=== PATIENT | female | born 2005 | race Caucasian/White ===

== ENCOUNTER 2023-07-29 23:35 | Emergency (ER) | payer OTHER, SELFPAY ==
--- NOTE | ~2023-07-29 | XR_ITS ---
EXAMINATION: XR LUMBAR SPINE CLINICAL INFORMATION: Pain COMPARISON: None available. TECHNIQUE: Three views of the lumbar spine. FINDINGS: There is anatomic alignment of the lumbar vertebral bodies and posterior elements. Vertebral body heights and intervertebral disc spaces appear maintained. No acute fracture is seen. Sacroiliac joints appear intact. Moderate stool in the colon. XR/XR lumbar spine 2-3V IMPRESSION: No acute findings identified in the lumbar spine.
--- NOTE | ~2023-07-29 | XR_ITS ---
EXAMINATION: XR THORACOLUMBAR SPINE CLINICAL INFORMATION: Pain COMPARISON: None available. TECHNIQUE: AP and lateral views. FINDINGS: Alignment throughout the thoracic spine appears anatomic. Vertebral body heights are maintained. No acute fracture is seen. Intervertebral disc spaces also appear preserved. XR/XR thoracic spine 2V IMPRESSION: No acute findings identified.
[2023-07-29 23:39] VITALS: BP 138/80; PULSE 85; RESP 17; TEMP 36.6; O2SAT 98; BMI 23.1
--- NOTE | 2023-07-30 01:28 | ED_ITS ---
HPI - Back Pain/Injury General Chief Complaint: Back Pain/Injury Stated Complaint: Back pain/No inj Time Seen by Provider: 07/30/23 01:12 Source: patient Mode of arrival: ambulatory Limitations: no limitations History of Present Illness HPI Narrative: 17 yo female otherwise healthy notes atraumatic mid back pain that started after sitting in class for 3 hours. It has worsened throughout the day. She notes no numbness, weakness, saddle anesthesia, loss of control of bowel or bladder. No IVDA, thinners. She denies back pain in past. Hurts to move. Feels tight. No fevers or tick bites MD elicited complaint: back pain Onset (ago): hour(s) (several) Timing: constant Severity: moderate Similar Symptoms Previously: No Quality: spasming and throbbing Location: thoracic spine Radiation: none Exacerbating factors: movement Relieving factors: immobilization Context: unknown Associated symptoms: denies other symptoms Treatments prior to arrival: NSAIDS Work related injury: No Related Data Previous Rx's ?Medication ?Instructions ?Recorded cyclobenzaprine 10 mg tablet 10 mg PO TID PRN muscle spasm #20 07/30/23 tabs lidocaine 5 % topical patch 1 patch topical DAILY #30 ea 07/30/23 Allergies Allergy/AdvReac Type Severity Reaction Status Date / Time No Known Allergies Allergy Verified 07/29/23 23:41 Review of Systems Review of Systems: Constitutional : No Weight loss, No Fever, No Chills, ENT/Mouth : No Hearing loss, No Ear Pain, No Nasal Congestion, No Sinus Pain, No Hoarseness, No sore throat, No Rhinorrhea, No Swallowing Difficulty Cardiovascular : No Chest Pain, No SOB Respiratory : No Cough, No Dyspnea Gastrointestinal : No Nausea, No Vomiting, No Diarrhea, No abdominal Pain, No Hematochezia, No Melena Genitourinary : No Dysuria, No Urinary Frequency, No Hematuria, No Urinary Incontinence, Musculoskeletal : positive back pain Skin : No Skin Lesions, No rash Neuro : No Weakness, No Numbness, No Paresthesias, no loss of bowel or bladder incontinence, no saddle anesthesia All other systems reviewed and are negative COUNT INCLUDES THE [facility] Past Medical History Source: old records reviewed Medical History (Updated 07/30/23 @ 01:56 by Christine Monzon DO) Routine sports physical exam Social History Social History Alcohol intake: never Patient Tobacco Use Status: Never used Tobacco Advance Directives: No Advance Directives Information Provided: Yes Current occupational status: employed Current occupation: [employer] Physical Exam Vital Signs: Vital Signs: Last Vital Signs Temp 98.3 F 07/30/23 02:51 Pulse 64 07/30/23 02:51 Resp 17 07/30/23 02:51 BP 108/61 07/30/23 02:51 Pulse Ox 99 07/30/23 02:51 O2 Del Method Room Air 07/30/23 02:51 BMI result Body Mass Index 23.1 Appearance: Alert. Oriented X3. No acute distress. Eyes: Pupils equal, round and reactive to light. ENT: Pharynx normal. Neck: Normal inspection. Neck supple. CVS: Normal heart rate and rhythm. Pulses normal. Respiratory: No respiratory distress. Breath sounds normal. Abdomen: Soft and nontender. Back: ttp along thoracic paraspinals rotating and moving triggers pain Skin: Skin warm and dry. Normal skin color. Normal skin turgor. Extremities: No lower extremity edema. No calf ttp Neuro: Oriented X 3. No motor deficit. No sensory deficit. Medications Administered Discontinued Medications Generic Name Dose Route Start Last Admin Trade Name Freq PRN Reason Stop Dose Admin Acetaminophen 975 mg 07/30/23 01:40 07/30/23 02:07 Acetaminophen 325 Mg Tablet PO 07/30/23 01:41 975 mg ONCE ONE Administration Cyclobenzaprine HCl 10 mg 07/30/23 01:51 07/30/23 02:07 Cyclobenzaprine Hcl 10 Mg Tablet PO 07/30/23 01:52 10 mg ONCE ONE Administration Lidocaine 2 patch 07/30/23 01:51 07/30/23 02:08 Lidocaine 4 % Patch Adh..Patch TRANSDERMA 07/30/23 01:52 2 patch ONCE ONE Administration Protocol Medical Decision Making Medical Decision Making MDM Narrative: 17 yo female with atraumatic thoracic pain though when she moves she has spasm and is uncomfortable she has no red flag symptoms and is NV intact no cauda equina symptoms and no infectious symptoms - xrays, flexeril and lidocaine patches along with lyme titer ordered. Differential Diagnosis Differential Diagnoses: The differential diagnosis associated with the presentation includes spasm, strain, lyme, fracture Admission/Observation Consideration of admission/observation: Escalation of care including admission/observation considered pain improved stable for DC Lab Data [facility] Lab Attestation statement: I reviewed the patient's lab results. Labs: Lab Results 07/30/23 Range/Units 02:53 Urine Color Yellow Urine Appearance Clear Urine pH 6.5 (5.0-9.0) Ur Specific [place] 1.025 (1.005-1.025) Urine Protein Negative (Neg-Trace) mg/dL Urine Glucose (UA) Negative (Negative) mg/dL Urine Ketones Trace (Negative) mg/dL Urine Blood Negative (Negative) Urine Nitrite Negative (Negative) Ur Leukocyte Esterase Trace H (Negative) Urine RBC 0-2 (0-2) /HPF Urine WBC 6-10 H (0-5) /HPF Ur Squamous Epith Cells 3-5 (0-2) /HPF Urine Bacteria 1+ (None Seen) Hyaline Casts 0-2 (0-2) /LPF Independent Interpretation I performed an independent interpretation of an: Plain X-Ray (no fx) Radiology Impression Discussion of test interpretation with radiology: I have reviewed the radiologist's reading. Independent Historian Clinical information obtained from an independent historian. History obtained from or confirmed by: Friend Prescription Management I considered prescription management with: Pain Medication and Other Discharge Plan Discharge Clinical Impression: Thoracic back pain Patient Disposition: Home, Self-Care Instructions: Thoracic Pain (ED) Additional Instructions: lyme test pending if positive we will call you. urine culture pending will call if positive. xrays normal return for any worsening symptoms or concerns rotate tylenol and motrin for pain limit lifting to 10lbs for the next 5 days follow up with your doctor or [facility] in the next 2 days Prescriptions: New cyclobenzaprine 10 mg tablet 10 mg PO TID PRN (Reason: muscle spasm) Qty: 20 0RF lidocaine 5 % adhesive patch,medicated 1 patch topical DAILY Qty: 30 0RF Rx Instructions: leave on most painful area for up to 12 hrs Stand Alone Forms: Work/School Release Print Language: Arabic
[2023-07-30] MEDS: Cyclobenzaprine HCl 10 MG TABLET PO (02:07)
[2023-07-30] MEDS: Acetaminophen 325 MG TABLET 975 MG PO (02:07)
[2023-07-30] MEDS: Lidocaine 4 % Patch ADH..PATCH 2 PATCH TRANSDERMA (02:08)
--- NOTE | 2023-07-30 02:20 | PC.NURSE ---
Medicated per MAY. traffic technician at bedside for labs.
[2023-07-30 02:51] VITALS: BP 108/61; PULSE 64; RESP 17; TEMP 36.8; O2SAT 99
[2023-07-30 03:00] LABS: Appearance Urine Clear; Color Urine Yellow; Glucose Urine UA Negative (Negative); Leukocyte Esterase Urine Trace (Negative); Nitrite Urine Negative (Negative); PH 6.5 (5.0-9.0); Specific Gravity - Urine 1.025 (1.005-1.025); UMIC TRIGGER UACC YES; Urine Blood Negative (Negative); Urine Ketones Trace mg/dL (Negative); Urine Protein Negative (Neg-Trace)
[2023-07-30 03:03] LABS: Bacteria Urine 1+ (None Seen); Hyaline Casts Urine 0-2 /LPF (0-2); RBC Urine 0-2 /HPF (0-2); UACC Culture Trigger YES
[2023-07-30 03:49] VITALS: BP 136/77; PULSE 66; RESP 18; TEMP 36.6; O2SAT 100
[2023-08-01 07:43] LABS: Lyme Abs Screen <0.90 index
== END 2023-07-30 03:50 | disposition home or self-care (01) ==
PROVIDERS: Emergency Provider Emergency Medicine; PCP Pediatrics
DX: M54.6 Pain in thoracic spine (principal)
CPT/HCPCS: 36415; 72070; 72100; 81001; 81003; 86617; 86618; 87086; 99283

== ENCOUNTER 2025-03-01 10:50 | Outpatient (REF) | payer MEDICAID, SELFPAY ==
[2025-03-02 15:04] LABS: Bacterial Vaginosis PCR NEGATIVE (Negative); Candida Group PCR NOT DETECTED (Not Detect); Candida glab krusei PCR NOT DETECTED (Not Detect); Trichomonas vaginalis PCR NOT DETECTED (Not Detect)
[2025-03-02 15:36] LABS: CT PCR NOT DETECTED (Not Detect.); NG PCR NOT DETECTED (Not Detect.)
== END 2025-03-01 10:51 | disposition home or self-care (01) ==
LOC: HO.LNP 10:50
PROVIDERS: PCP Pediatrics; Visit Provider Advanced Practice Midwife
DX: Z01.419 Encounter for gynecological examination (general) (routine) without abnormal findings (principal); Z20.2 Contact with and (suspected) exposure to infections with a predominantly sexual mode of transmission; Z30.09 Encounter for other general counseling and advice on contraception
CPT/HCPCS: 81515; 87491; 87591; 87626; 88175; 99385

== ENCOUNTER 2025-03-01 10:50 | Outpatient (AMB) | payer MEDICAID, SELFPAY ==
--- NOTE | 2025-03-01 11:07 | MHC.OFFVIS ---
Vital Signs 03/01/25 11:20 Height 5 ft 6 in Weight 135 lb BMI 21.8 BP 106/68 Intake Visit Reasons: PATIENT AMBASSADOR annual exam White Metal Caster: White Metal Caster Present (Maude) Accompanied by: Self / Same As Patient Allergies No Known Allergies Allergy (Verified 03/01/25 11:19) Medication List - Last Reconciled 03/01/25 by Ashley Candelario CNM norgestimate-ethinyl estradiol 0.18/0.215/0.25 mg-0.025 mg ([id number]) 1 tab PO DAILY sertraline 50 mg PO DAILY Is last menstrual period known: Yes Last menstrual period: 02/09/25 Post menopausal: No Patient : No HPI HPI PATIENT AMBASSADOR annual exam: Details: 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 She normally has gone to her cd technician for regular care. She has been on control pills for about 4 years lately she has noticed that her periods are almost very light staining and not much else and sometimes she gets a little spotting throughout the month she does not think she has missed any pills at all she has had no side effects to them other than the lightening of her menses. She does not smoke and she has no other contraindications to OCPs. She is sexually active so she does need pills for control she thinks she started on them to regulate her periods. She is healthy and goes to the gym 4 to 6 times a week. 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 [facility] Medical History (Updated 03/01/25 @ 12:10 by Ashley Candelario CNM) Depression Anxiety Routine sports physical exam Social History Alcohol intake: never Patient Tobacco Use Status: Never used Tobacco Current occupational status: employed Current occupation: [employer] Female Reproductive History Menstrual Age of Menarche: 10 Duration of menses: 3-5 days Date of last menstrual period: 02/09/25 control method: pills Total pregnancies: 0 History of abnormal pap smear: No Physical Exam Vital Signs: Last Vital Signs BP 106/68 03/01/25 11:20 BMI result Body Mass Index 21.8 Const General: healthy appearing, comfortable, no acute distress, well developed and alert Nutritional Appearance: average body habitus Orientation/consciousness: patient oriented x3 Limitations: no limitations HEENT Head: Yes normocephalic Neck Neck: Yes normal visual inspection Chest Chest palpation & inspection: normal inspection of the chest Breast/axilla inspection: normal inspection of the breasts and normal inspection of the axillae Breast/axilla palpation: normal palpation of the breasts and normal palpation of the axillae Resp Effort & Inspection: normal respiratory effort GI Inspection: Yes normal to inspection, No Abdominal wall edema and No distended Palpation (GI): Soft to palpation and nontender Other: Completely normal external exam patient has a small freckle a her right groin/labia majora. Vagina is pink and moist normal-appearing mucus cervix nulliparous pink smooth healthy appearing friable with Pap cervix is long closed smooth mobile nontender deviated slightly to right. Uterus small midposition mobile nontender adnexa nontender nonenlarged fair tone with Kegelt. General: Yes bladder normal to palpation External Female Exam: normal external appearance and normal appearance of the urethra Speculum Exam - Vagina: normal appearance of the vagina, normal palpation and normal vaginal discharge Speculum Exam - Cervix: normal appearance of the cervix, normal palpation and nontender Bimanual exam- vagina & uterus: normal bimanual exam, normal palpation, uterine size normal, bladder normal to palpation, consistency normal, normal palpation, uterine mobility normal, uterine shape normal, No Cervical tenderness present, non-tender and no cervical motion tenderness Bimanual Exam- Adnexa, other: normal adnexae, no masses, normal and No adnexal tenderness Neuro General: patient oriented x3 Assessment & Plan Assessment & Plan (1) Well woman exam with routine gynecological exam: Code(s): Z01.419 - Encounter for gynecological examination (general) (routine) without abnormal findings Category: Medical (2) Screening for malignant neoplasm of cervix: Code(s): Z12.4 - Encounter for screening for malignant neoplasm of cervix Category: Medical (3) Encounter for screening examination for sexually transmitted disease: Code(s): Z11.3 - Encounter for screening for infections with a predominantly sexual mode of transmission Category: Medical (4) Counseling for control, oral contraceptives: Comment: Has been on present OCPs for 4 years periods very light/staining wishes to stay on these refilled for 1 year. Code(s): Z30.09 - Encounter for other general counseling and advice on contraception Category: Medical Plan -----Discussed in this visit the following: healthy balanced diet, regular and consistent exercise, getting recommended health screens, doing the best she can for her particular health concerns, kegel exercises, pap smear screening and followup recommendations, mammography screening and SBE, normal changes in cycles in her life stage--- . Discussed self-care Pap smear was done as well as testing for gonorrhea chlamydia trichomoniasis bacterial vaginosis and yeast. Discussed the the latter 2 only need to be treated if they are symptomatic men that results will be available in the portal but we will certainly notify her for any positives I gave her the patient portal information. I am ordering labs so she can get HIV hep B hep C and syphilis testing in the lab. I am renewing her control pills for 1 more year. She says her mother is helping her find a primary care provider. She has planning on moving to the [facility] after graduation then look for work in her field there. Reviewed danger signs of control pills but also normal side effects and the fact that she has been on the pills for 4 years may contribute to thinning of the lining of her uterus and some instability which is not of clinical concern and if she continues to need control she should just continue to take the pills as she is not miss any pills I did review with her what to do for any missed pills and backup for prevention. RTC 1 year unless she has moved. Orders: Orders Hepatitis B Surface Antigen Today Z11.3 - Encounter for screening for infections with a predominantly sexual mode of transmission Hepatitis C Antibody Today Z11.3 - Encounter for screening for infections with a predominantly sexual mode of transmission Syphilis Screen Today Z11.3 - Encounter for screening for infections with a predominantly sexual mode of transmission HIV Ab/Ag Today Z11.3 - Encounter for screening for infections with a predominantly sexual mode of transmission Medications: New norgestimate-ethinyl estradiol 0.18/0.215/0.25 mg-0.025 mg ([id number]) 1 tab PO DAILY 84 tabs 4RF Coding Level of Care Code New Pt Prev Care 18-39yr([id number] Diagnoses Well woman exam with routine gynecological exam Z01.419 Screening for malignant neoplasm of cervix Z12.4 Encounter for screening examination for sexually transmitted disease Z11.3 Counseling for control, oral contraceptives Z30.09
[2025-03-01 11:20] VITALS: BP 106/68; BMI 21.8
== END 2025-03-01 14:43 | disposition home or self-care (01) ==
LOC: HO.HWSM 10:50
PROVIDERS: PCP Pediatrics; Visit Provider Advanced Practice Midwife
DX: Z01.419 Encounter for gynecological examination (general) (routine) without abnormal findings (principal); Z11.3 Encounter for screening for infections with a predominantly sexual mode of transmission; Z30.09 Encounter for other general counseling and advice on contraception
CPT/HCPCS: 99385